=== PATIENT | male | born 2000 | race Caucasian/White ===

== ENCOUNTER 2021-10-15 08:25 | Observation (INO) | payer SELFPAY ==
[~2021-10-15] VITALS: Ht 172.7 cm; Wt 101.7 kg
[2021-10-15 09:06] LABS: BASO # 0.1 K/mm3 (0.0-0.2); BASO % 0.4 % (0.0-2.0); EOS # 0.1 K/mm3 (0.0-0.7); EOS % 0.4 % (0-4.0); GRAN # 11.4 K/mm3 (1.4-6.5); GRAN % 83.5 % (42.2-75.2); HEMATOCRIT 44.7 % (42.0-52.0); HEMOGLOBIN 14.4 g/dl (13.5-18.0); LYMPH # 1.3 K/mm3 (1.2-3.4); LYMPH % 9.5 % (20.0-51.0); MEAN CELL VOLUME 82 fl (80.0-100.0); MEAN CORPUSCULAR HEMOGLOBIN 26 pg (27.0-31.0); MEAN CORPUSCULAR HGB CONC 32 g/dl (33.0-37.0); MONO # 0.8 K/mm3 (0.1-0.6); MONO % 5.8 % (1.7-9.3); PLATELET COUNT 340 K/mm3 (130-400); RED BLOOD COUNT 5.48 M/mm3 (4.20-5.60)
[2021-10-15 09:25] LABS: ALBUMIN 4.4 gm/dL (3.5-5.0); BILIRUBIN,TOTAL 0.2 mg/dL (0.2-1.2); CALCIUM 9.8 mg/dL (8.4-10.2); CREATININE, serum 0.97 mg/dL (0.72-1.25); POTASSIUM 3.8 mmol/L (3.5-4.5); TOTAL PROTEIN 8.4 gm/dL (6.2-8.1)
[2021-10-15 12:07] VITALS: BP 120/72; PULSE 76
--- NOTE | 2021-10-15 12:15 | NUR ---
Patient to room 348 from the ED by wheelchair. A&Ox4. VSS. IV CDI. Denies pain, reports some nausea. Nurse oriented the patient to location, room and call light. Patient independent in the room. No further needs expressed. Nurse gave the patient a warm blanket to place on abdomen. Call light within reach
[2021-10-15 15:44] VITALS: BP 114/61; PULSE 78; TEMP 98.6
--- NOTE | 2021-10-15 17:30 | NUR ---
Patient complaints of nausea and did vomit frothy emesis into the toilet. A&Ox4. VSS. IV CDI. Denies pain, did not request nausea medication. Patient starting bowel prep, will monitor. No further needs expressed. Call light within reach
[2021-10-15 20:26] LABS: HEMATOCRIT 41.1 % (42.0-52.0); HEMOGLOBIN 13.1 g/dl (13.5-18.0)
[2021-10-15 21:46] VITALS: BP 122/69; PULSE 90; TEMP 98
--- NOTE | 2021-10-15 21:54 | NUR ---
PT IS IN BED, HAS EYES CLOSED, HAS BEEN GIVEN MORPHINE IV FOR ABDOMINAL PAIN. PT HAS BEEN TAKING BOWEL PREP SLOWLY, HAS BEEN UP INDEPENDENTLY TO BR NUMEROUS TIMES. PT HAS LIQUID RED STOOLS WITH SMALL FORMED BROWN PIECES ET MUCOUS. DR. PINEDO CALLED FOR UPDATE ON PT ET NEW ORDERS RECEIVED, STATES THAT THEY WILL PLAN FOR SURGERY @ 1300 TOMORROW. LEASING CONSULTANT NOTIFIED. PT INSTRUCTED TO NOTIFY STAFF OF ANY DIZZINESS OR LIGHTHEADEDNESS. PT VERBALIZES UNDERSTANDING. RESPIRATIONS UNLABORED. CALL LIGHT WITHIN REACH.
[2021-10-15 22:30] VITALS: BP 122/69; PULSE 78; TEMP 98
[2021-10-16] VITALS (15 sets, daily range): BP systolic 101–128; BP diastolic 55–88; PULSE 61–94; TEMP 97.4–98.9
--- NOTE | 2021-10-16 04:06 | NUR ---
PT SLEEPING IN BED @ THIS TIME, RESPIRATIONS UNLABORED. CALL LIGHT WITHIN REACH. IVF INFUSING. PT HAS NOT COMPLETED BOWEL PREP BUT MOST RECENT STOOLS HAVE APPEARED CLEAR. PT HAS DENIED ADDITIONAL ABDOMINAL PAIN BUT DOES HAVE OCCASIONAL NAUSEA AFTER DRINKING BOWEL PREP.
[2021-10-16 06:04] LABS: BASO % 0.3 % (0.0-2.0); EOS % 0.3 % (0-4.0); GRAN # 8.7 K/mm3 (1.4-6.5); GRAN % 75.9 % (42.2-75.2); HEMATOCRIT 38.9 % (42.0-52.0); HEMOGLOBIN 12.4 g/dl (13.5-18.0); LYMPH # 1.7 K/mm3 (1.2-3.4); LYMPH % 14.7 % (20.0-51.0); MEAN CELL VOLUME 82 fl (80.0-100.0); MEAN CORPUSCULAR HEMOGLOBIN 26 pg (27.0-31.0); MEAN CORPUSCULAR HGB CONC 32 g/dl (33.0-37.0); MEAN PLATELET VOLUME 10.3 fl (7.4-10.4); MONO % 8.5 % (1.7-9.3); PLATELET COUNT 283 K/mm3 (130-400); RED BLOOD COUNT 4.73 M/mm3 (4.20-5.60); REDCELL DISTRIBUTION WIDTH-CV 14.4 % (11.5-14.5)
[2021-10-16 06:20] LABS: CALCIUM 8.9 mg/dL (8.4-10.2); CREATININE, serum 0.81 mg/dL (0.72-1.25); MAGNESIUM 1.6 mg/dL (1.6-2.6); POTASSIUM 3.8 mmol/L (3.5-4.5)
--- NOTE | 2021-10-16 10:38 | NUR ---
Initial visit; Patient experiencing nausea, Pearl Technician offered God's blessings and let patient know of the availability of spiritual care at our hospital.
--- NOTE | 2021-10-16 11:58 | NUR ---
BACK CHARTING ASSESSMENT. PT ALERT AND ORIENTED. PT ABLE TO AMBULATE INDEPENDENTLY. PT LUNGS CLEAR TO AUSCULTATION. PT REPORTING FEELING BLOAT AND NAUSEOUS IN AM, MANAGED WITH ZOFRAN PER ORDERS. PT SCHEDULED AND PREPPED FOR PROCEDURE TODAY.
--- NOTE | 2021-10-16 13:05 | NUR ---
PT RECEIVED ON FLOOR. POST-OP VITALS INITIATED. PT ABLE TO AMBULALTE TO RESTROOM. WILL RESUME FLUIDS AND CALL FOR DIET ORDERS.
[2021-10-16] MEDS ORDERED: FLAGYL500 MG PO ×2 (13:14)
[2021-10-16] MEDS ORDERED: CIPRO 500MG TA500 MG PO ×2 (13:15)
[2021-10-16] MEDS ORDERED: LIALDA 1.2 GM1.2 GM PO ×2 (13:17)
[2021-10-16] MEDS ORDERED: ULTRAM 50MG TAB50 MG PO (14:28)
--- NOTE | 2021-10-16 16:18 | NUR ---
Steam Trap Worker met with patient to discuss discharge planning. Patient's mother, Marguerite (ph#[phone]) is at bedside. Patient currently lives in the dorms at [facility] but is from [place]. Patient does not have a current primary care physician as he does not have insurance. SW discussed following up with his Motor Electrician in the dorms on if there is an on campus clinic and patient verbalized understanding. Patient does not have any regular prescriptions but would likely use [facility] if he needed any medications. Patient does not use any DME and is independent with [facility]. Patient plans to return home today.
--- NOTE | 2021-10-16 17:05 | NUR ---
PT DISCHARGED. HEALTH SUMMARY, APPOINTMENTS, AND EDUCATION GIVEN TO BEST OF ABILITY. PT AMBULATORY, REFUSING WHEELCHAIR. PT INT DISCONTINUED. PT POST-OP VITALS COMPLETED. PT STATES MILD UPSET WITH EATING. PT DISCHARGED WITH FAMILY.
== END 2021-10-16 17:08 | disposition home or self-care (01) ==
LOC: COL.ER 08:25 → SURG 10:01
PROVIDERS: Student in an Organized Health Care Education/Training Program; ADMIT Internal Medicine
DX: K50.118 Crohn's disease of large intestine with other complication (principal); K51.818 Other ulcerative colitis with other complication; K92.1 Melena; E66.9 Obesity, unspecified
CPT/HCPCS: 99222-AI; J1170; J2270; J2405; J2704; J3475; J7030